=== PATIENT | female | born 1990 | race Caucasian/White ===

== ENCOUNTER 2018-01-01 14:55 | Emergency (ER) | payer SELFPAY ==
[~2018-01-01] VITALS: Ht 152.4 cm; Wt 81.6 kg
[2018-01-01] MEDS ORDERED: TETANUS/DIPHTHERIA TOX ADULT 0.5 ML SYR IM STA (15:18)
[2018-01-01] MEDS ORDERED: TETANUS/DIPHTHERIA TOX ADULT 0.5 ML SYR ONE (15:22)
[2018-01-01 15:43] VITALS: BP 113/76
== END 2018-01-01 15:44 | disposition home or self-care (01) ==
LOC: ER 14:55
DX: S61.212A Laceration without foreign body of right middle finger without damage to nail, initial encounter (principal); W26.0XXA Contact with knife, initial encounter; Y99.0 Civilian activity done for income or pay
CPT/HCPCS: 90471; 90714; 99283